=== PATIENT | female | born 1985 | race African-American/Black ===

== ENCOUNTER 2018-04-19 01:41 | Emergency (ER) | payer OTHER ==
--- NOTE | 2018-04-19 01:49 | PDOC ---
History of Present Illness - General Exam Limitations: No Limitations - History of Present Illness Initial Comments: 04/19/18 02:06 The patient is a 32 year old female with a significant PMH of diabetes who presents to the emergency department via EMS with abdominal pain for 2 days. The patient has been experiencing associated vomiting with her abdominal pain as per her significant other. She states that she is currently on her menstrual period. The patient denies any drug allergies. She denies any other symptoms at time of exam. She denies any fever, chills, nausea, diarrhea ,constipation, or urinary symptoms. The patient denies any chest pain, shortness of breath, headache and dizziness.The patient denies any other complaints at time of exam. <Boone Dc - Last Filed: 04/19/18 02:05> - General History Source: Significant Other <Fritz Maria - Last Filed: 04/20/18 19:51> - General Stated Complaint: VOMITING Time Seen by Provider: 04/19/18 01:47 Past History <Boone Dc - Last Filed: 04/19/18 02:05> <Fritz Maria - Last Filed: 04/20/18 19:51> - Past Medical History Allergies/Adverse Reactions: Allergies Allergy/AdvReac Type Severity Reaction Status Date / Time No Known Allergies Allergy Verified 04/19/18 01:57 Home Medications: Ambulatory Orders NK [No Known Home Medication] 04/19/18 Review of Systems - Review of Systems Able to Perform ROS?: Yes Comments:: 04/19/18 02:02 CONSTITUTIONAL: Absent: fever, chills, diaphoresis, generalized weakness, malaise, loss of appetite HEENT: Absent: rhinorrhea, nasal congestion, throat pain, throat swelling, difficulty swallowing, mouth swelling, ear pain, eye pain, visual Changes CARDIOVASCULAR: Absent: chest pain, syncope, palpitations, irregular heart rate, lightheadedness , peripheral edema RESPIRATORY: Absent: cough, shortness of breath, dyspnea with exertion, orthopnea, wheezing, stridor, hemoptysis GASTROINTESTINAL:(+)abdominal pain, vomiting Absent: abdominal distension, nausea, diarrhea, constipation, melena, hematochezia GENITOURINARY: Absent: dysuria, frequency, urgency, hesitancy, hematuria, flank pain, genital pain MUSCULOSKELETAL: Absent: myalgia, arthralgia, joint swelling SKIN: Absent: rash, itching, pallor HEMATOLOGIC/IMMUNOLOGIC: Absent: easy bleeding, easy bruising, lymphadenopathy, frequent infections ENDOCRINE: Absent: unexplained weight gain, unexplained weight loss, heat intolerance, cold intolerance NEUROLOGIC: Absent: headache, focal weakness or paresthesias, dizziness, unsteady gait, seizure, mental status changes, bladder or bowel incontinence PSYCHIATRIC: Absent: anxiety, depression, suicidal or homicidal ideation, hallucinations. <Boone Dc - Last Filed: 04/19/18 02:05> *Physical Exam - Vital Signs Last Vital Signs Temp Pulse Resp BP Pulse Ox 97.9 F 95 H 20 156/94 99 04/19/18 01:54 04/19/18 01:54 04/19/18 01:54 04/19/18 01:54 04/19/18 01:54 - Physical Exam Comments: 04/19/18 02:02 GENERAL:(+)mild distress Well developed, well nourished. Awake and alert. HEENT: Normocephalic, atraumatic. PERRLA, EOMI. No conjunctival pallor. Sclera are non- icteric. Moist mucous membranes. Oropharynx is clear. NECK: Supple. Full ROM. No JVD. Carotid pulses 2+ and symmetric, without bruits. No thyromegaly. No lymphadenopathy. CARDIOVASCULAR: Regular rate and rhythm. No murmurs, rubs, or gallops. Distal pulses are 2+ and symmetric. PULMONARY: No evidence of respiratory distress. Lungs clear to auscultation bilaterally. No wheezing, rales or rhonchi. ABDOMINAL: Soft. Non-tender. Non-distended. No rebound or guarding. No organomegaly. Normoactive bowel sounds. MUSCULOSKELETAL Normal range of motion at all joints. No bony deformities or tenderness. No CVA tenderness. EXTREMITIES: No cyanosis. No clubbing. No edema. No calf tenderness. SKIN: Warm and dry. Normal capillary refill. No rashes. No jaundice. NEUROLOGICAL: Alert, awake, appropriate. Cranial nerves 2-12 intact. No deficits to light touch and temperature in face, upper extremities and lower extremities. No motor deficits in the in face, upper extremities and lower extremities. Normoreflexic in the upper and lower extremities. Normal speech. Toes are down- going bilaterally. Gait is normal without ataxia. PSYCHIATRIC: Cooperative. Good eye contact. Appropriate mood and affect. <Boone Dc - Last Filed: 04/19/18 02:05> Heart Score/ECG Review - ECG Intrepretation Comment:: 04/19/18 02:06 Abnormal ECG Vent rate 87 bpm [place] interval 158 ms QRS [id number] ms QT/QTc 402/483 ms <Boone Dc - Last Filed: 04/19/18 02:05> ED Treatment Course - LABORATORY CBC & Chemistry Diagram: 04/19/18 06:29 04/19/18 06:29 <Fritz Maria - Last Filed: 04/20/18 19:51> Medical Decision Making - Medical Decision Making 04/20/18 19:51 Dr. Maria: The scribe's documentation has been prepared under my direction and personally reviewed by me in its entirery. I confirm that the note above accurately reflects all work, treatment, procedures, and medical decision making performed by me. <Fritz Marai - Last Filed: 04/20/18 19:51> *DC/Admit/Observation/Transfer <DaoKayainocencio - Last Filed: 04/19/18 02:05> - Discharge Dispostion Decision to Admit order: No <Fritz Maria - Last Filed: 04/20/18 19:51> Diagnosis at time of Disposition: Nausea and vomiting - Discharge Dispostion Disposition: HOME Condition at time of disposition: Improved - Referrals Referrals: Aneudy Hernandez MD [Primary Care Provider] - - Patient Instructions Printed Discharge Instructions: DI for Vomiting -- Adult Additional Instructions: Be sure to check your blood sugar regularly and use your diabetes medications as prescribed. Uncontrolled blood sugar can lead to severe illness, or even . If you experience persistent nausea or vomiting, abdominal pain, fevers, uncontrolled blood sugar, or any other concerning symptoms, return to the ER immediately. Otherwise, follow up with your primary doctor within 48 hours to have your sugar re-checked and your medications adjusted as needed.
[2018-04-19] MEDS ORDERED: PANTOPRAZOLE SODIUM 40 MG in SODIUM CHLORIDE 100 ML IVPB ONE (01:51)
[2018-04-19] MEDS ORDERED: SODIUM CHLORIDE 1,000 ML IV STA ×2 (01:51)
[2018-04-19] MEDS ORDERED: ONDANSETRON 4 MG/2 ML VIAL IVPUSH STA (01:51)
[2018-04-19 01:57] VITALS: BMI 51.2
[2018-04-19] MEDS ORDERED: LORazepam 2 MG/ML SDV VIAL ONE ×2 (02:16→03:22)
[2018-04-19] MEDS ORDERED: PANTOPRAZOLE SODIUM 40 MG/100 ML BAG IVPB ONE (02:16)
[2018-04-19 02:39] LABS: BASO % 0.5 % (0-2.0); EOS % 0.1 % (0-4.5); HEMATOCRIT 39.2 % (32.4-45.2); HEMOGLOBIN 12.8 GM/dL (10.7-15.3); LYMPH % 11.6 % (8-40); MCH 26.6 pg (25.7-33.7); MCHC 32.6 g/dl (32.0-36.0); MEAN CELL VOLUME 81.5 fl (80-96); MEAN PLT VOLUME 9.4 fl (7.5-11.1); MONO % 4.7 % (3.8-10.2); NEUT % 83.1 % (42.8-82.8); PLATELET COUNT 297 K/MM3 (134-434); RBC 4.82 M/mm3 (3.60-5.2); RDW 13.8 % (11.6-15.6); WHITE BLOOD COUNT 14.1 K/mm3 (4.0-10.0)
[2018-04-19 02:43] LABS: VENOUS PC02 31.1 mmHg (38-52); VENOUS PH 7.47 (7.32-7.42); VENOUS PO2 36.6 mmHg (28-48)
[2018-04-19 02:56] LABS: INR 1.18 (0.82-1.09); PROTHROMBIN TIME (PATIENT) 13.3 SEC (9.7-13.0)
[2018-04-19 03:02] LABS: ACETONE SERUM TRACE (NEGATIVE)
[2018-04-19] MEDS ORDERED: METOCLOPRAMIDE HCL INJECTION 10 MG/2 ML VIAL IVPUSH ONE (03:05)
[2018-04-19] MEDS ORDERED: METOCLOPRAMIDE HCL INJECTION 10 MG/2 ML VIAL ONE (03:22)
[2018-04-19 03:52] LABS: ALBUMIN 4.3 g/dl (3.4-5.0); ALK PHOS 94 U/L (45-117); ANION GAP 11 (8-16); BILIRUBIN,TOTAL 0.4 mg/dL (0.2-1.0); BLOOD UREA NITROGEN 8 mg/dL (7-18); CALCIUM 8.9 mg/dL (8.5-10.1); CHLORIDE 105 mmol/L (98-107); CO2 23 mmol/L (21-32); CREATININE 0.7 mg/dL (0.55-1.02); GLUCOSE,RANDOM 298 mg/dL (74-106); MAGNESIUM 1.9 mg/dL (1.8-2.4); POTASSIUM 3.4 mmol/L (3.5-5.1); SGOT/AST 7 U/L (15-37); SGPT/ALT 14 U/L (12-78); SODIUM 139 mmol/L (136-145); TOT PROT 8.2 g/dl (6.4-8.2)
[2018-04-19 05:30] LABS: URINE APPEARANCE CLEAR; URINE BILIRUBIN NEGATIVE (<2.0 mg/dL); URINE COLOR STRAW; URINE GLUCOSE (UA) 3+ (NEGATIVE); URINE KETONE 2+ (NEGATIVE); URINE LEUK ESTERASE NEGATIVE (NEGATIVE); URINE NITRITE NEGATIVE (NEGATIVE); URINE PROTEIN NEGATIVE (NEGATIVE); URINE UROBILINOGEN NEGATIVE mg/dL (0.2-1.0)
[2018-04-19 05:33] LABS: EPI CELLS RARE /HPF (FEW); URINE BACTERIA FEW /hpf (NONE SEEN); URINE MUCUS RARE
[2018-04-19 05:55] LABS: COCAINE, UR NEGATIVE ng/ml (CUTOFF=300); METHADONE, UR NEGATIVE ng/ml (CUTOFF=300); OPIATES, URI NEGATIVE ng/ml (CUTOFF=300); PHENCYCLIDINE,URINE NEGATIVE ng/ml (CUTOFF=25); URINE AMPHETAMINES NEGATIVE ng/ml (CUTOFF=500); URINE BARBITURATES NEGATIVE ng/ml (CUTOFF=200); URINE BENZODIAZEPINES NEGATIVE ng/ml (CUTOFF=200)
[2018-04-19] MEDS ORDERED: DEXTROSE 5%-LACTATED RINGERS 1,000 ML IV SCH (06:15)
[2018-04-19 06:48] LABS: BASO % 0.4 % (0-2.0); LYMPH % 5.5 % (8-40); MCH 26.6 pg (25.7-33.7); MCHC 32.5 g/dl (32.0-36.0); MEAN CELL VOLUME 81.8 fl (80-96); MEAN PLT VOLUME 9.3 fl (7.5-11.1); NEUT % 92.1 % (42.8-82.8); PLATELET COUNT 249 K/MM3 (134-434); RBC 4.52 M/mm3 (3.60-5.2); WHITE BLOOD COUNT 14.7 K/mm3 (4.0-10.0)
[2018-04-19 07:27] LABS: ALBUMIN 3.9 g/dl (3.4-5.0); ALK PHOS 86 U/L (45-117); ANION GAP 9 (8-16); BILIRUBIN,TOTAL 0.3 mg/dL (0.2-1.0); BLOOD UREA NITROGEN 6 mg/dL (7-18); CALCIUM 8.1 mg/dL (8.5-10.1); CHLORIDE 106 mmol/L (98-107); CO2 22 mmol/L (21-32); CREATININE 0.6 mg/dL (0.55-1.02); GLUCOSE,RANDOM 277 mg/dL (74-106); SGPT/ALT 16 U/L (12-78); SODIUM 137 mmol/L (136-145); TOT PROT 7.7 g/dl (6.4-8.2)
[2018-04-19 07:46] LABS: MAGNESIUM 1.9 mg/dL (1.8-2.4); POTASSIUM 4.4 mmol/L (3.5-5.1); SGOT/AST 16 U/L (15-37)
--- NOTE | 2018-04-19 08:07 | PDOC ---
*Physical Exam - Vital Signs Last Vital Signs Temp Pulse Resp BP Pulse Ox 98.0 F 80 18 140/85 97 04/19/18 05:30 04/19/18 05:30 04/19/18 05:30 04/19/18 05:30 04/19/18 05:30 - Physical Exam Comments: 04/19/18 08:01 "GENERAL: Awake, alert, and fully oriented, in no acute distress. HEAD: No signs of trauma EYES: PERRLA, EOMI, sclera anicteric, conjunctiva clear ENT: Auricles normal inspection, hearing grossly normal, nares patent, oropharynx clear without exudates. Moist mucosa NECK: Nontender, no stepoffs, Normal ROM, supple, no lymphadenopathy, JVD, or masses LUNGS: Breath sounds equal, clear to auscultation bilaterally. No wheezes, and no crackles HEART: Regular rate and rhythm, normal S1 and S2, no murmurs, rubs or gallops ABDOMEN: Soft, nontender, normoactive bowel sounds. No guarding, no rebound. No masses EXTREMITIES: Normal range of motion, no edema. No clubbing or cyanosis. No cords, erythema, or tenderness NEUROLOGICAL: Cranial nerves II through XII intact. 5/5 strength and sensation in all extremities, Normal speech, normal gait, normal cerebellar function SKIN: Warm, Dry, normal turgor, no rashes or lesions noted. " ED Treatment Course - LABORATORY CBC & Chemistry Diagram: 04/19/18 06:29 04/19/18 06:29 - ADDITIONAL ORDERS Additional order review: Laboratory Results 04/19/18 04/19/18 04/19/18 06:29 05:13 05:13 PT with INR INR VBG pH POC VBG pCO2 POC VBG pO2 Mixed VBG HCO3 Sodium 137 Potassium 4.4 Chloride 106 Carbon Dioxide 22 Anion Gap 9 BUN 6 L Creatinine 0.6 Creat Clearance w eGFR > 60 Random Glucose 277 H Calcium 8.1 L Magnesium 1.9 Total Bilirubin 0.3 AST 16 ALT 16 Alkaline Phosphatase 86 Total Protein 7.7 Albumin 3.9 Lipase Serum , Qual Urine Color Straw Urine Appearance Clear Urine pH 8.0 Ur Specific [place] 1.020 Urine Protein Negative Urine Glucose (UA) 3+ H Urine Ketones 2+ H Urine Blood 1+ H Urine Nitrite Negative Urine Bilirubin Negative Urine Urobilinogen Negative Ur Leukocyte Esterase Negative Urine WBC (Auto) 3 Urine RBC (Auto) 5 Ur Epithelial Cells Rare Urine Bacteria Few Urine Mucus Rare Opiates Screen Negative Methadone Screen Negative Barbiturate Screen Negative Phencyclidine Screen Negative Ur Amphetamines Screen Negative MDMA (Ecstasy) Screen Negative Benzodiazepines Screen Negative Cocaine Screen Negative U Marijuana (THC) Screen Positive Alcohol, Quantitative Acetone, Qual 04/19/18 04/19/18 04/19/18 02:00 02:00 02:00 PT with INR INR VBG pH 7.47 H POC VBG pCO2 31.1 L POC VBG pO2 36.6 Mixed VBG HCO3 22.5 Sodium Potassium Chloride Carbon Dioxide Anion Gap BUN Creatinine Creat Clearance w eGFR Random Glucose Calcium Magnesium Total Bilirubin AST ALT Alkaline Phosphatase Total Protein Albumin Lipase 122 Serum , Qual Urine Color Urine Appearance Urine pH Ur Specific [place] Urine Protein Urine Glucose (UA) Urine Ketones Urine Blood Urine Nitrite Urine Bilirubin Urine Urobilinogen Ur Leukocyte Esterase Urine WBC (Auto) Urine RBC (Auto) Ur Epithelial Cells Urine Bacteria Urine Mucus Opiates Screen Methadone Screen Barbiturate Screen Phencyclidine Screen Ur Amphetamines Screen MDMA (Ecstasy) Screen Benzodiazepines Screen Cocaine Screen U Marijuana (THC) Screen Alcohol, Quantitative < 5.0 Acetone, Qual Trace H 04/19/18 04/19/18 04/19/18 02:00 02:00 02:00 PT with INR 13.30 H INR 1.18 H VBG pH POC VBG pCO2 POC VBG pO2 Mixed VBG HCO3 Sodium 139 Potassium 3.4 L Chloride 105 Carbon Dioxide 23 Anion Gap 11 BUN 8 Creatinine 0.7 Creat Clearance w eGFR > 60 Random Glucose 298 H Calcium 8.9 Magnesium 1.9 Total Bilirubin 0.4 AST 7 L ALT 14 Alkaline Phosphatase 94 Total Protein 8.2 Albumin 4.3 Lipase Serum , Qual Negative Urine Color Urine Appearance Urine pH Ur Specific [place] Urine Protein Urine Glucose (UA) Urine Ketones Urine Blood Urine Nitrite Urine Bilirubin Urine Urobilinogen Ur Leukocyte Esterase Urine WBC (Auto) Urine RBC (Auto) Ur Epithelial Cells Urine Bacteria Urine Mucus Opiates Screen Methadone Screen Barbiturate Screen Phencyclidine Screen Ur Amphetamines Screen MDMA (Ecstasy) Screen Benzodiazepines Screen Cocaine Screen U Marijuana (THC) Screen Alcohol, Quantitative Acetone, Qual 04/19/18 04/19/18 06:29 02:00 RBC 4.52 4.82 MCV 81.8 81.5 MCHC 32.5 32.6 RDW 14.0 13.8 MPV 9.3 9.4 Neutrophils % 92.1 H 83.1 H Lymphocytes % 5.5 L D 11.6 Monocytes % 2.0 L 4.7 Eosinophils % 0.0 D 0.1 Basophils % 0.4 0.5 - Medications Given in the ED: ED Medications Discontinued Medications Generic Name Dose Route Start Last Admin Trade Name Freq PRN Reason Stop Dose Admin Sodium Chloride 1,000 mls @ 1,000 mls/hr 04/19/18 01:51 04/19/18 02:29 Normal Saline - IV 04/19/18 02:50 1,000 mls/hr ASDIR STA Administration Sodium Chloride 1,000 mls @ 1,000 mls/hr 04/19/18 01:51 04/19/18 02:29 Normal Saline - IV 04/19/18 02:50 1,000 mls/hr ASDIR STA Administration Pantoprazole Sodium 40 mg/ 100 mls @ 200 mls/hr 04/19/18 01:51 04/19/18 02:29 Sodium Chloride IVPB 04/19/18 02:20 200 mls/hr ONCE ONE Administration Dextrose/Lactated Ringer's 1,000 mls @ 100 mls/hr 04/19/18 06:15 04/19/18 06: 31 D5-Lr - IV 100 mls/hr ASDIR ANA Administration Lorazepam 1 mg 04/19/18 02:15 04/19/18 02:30 Ativan Injection - IVPUSH 04/19/18 02:16 1 mg ONCE ONE Administration Lorazepam 1 mg 04/19/18 03:08 04/19/18 03:53 Ativan Injection - IVPUSH 04/19/18 03:09 1 mg ONCE ONE Administration Metoclopramide HCl 10 mg 04/19/18 03:05 04/19/18 03:53 Reglan Injection - IVPUSH 04/19/18 03:06 10 mg ONCE ONE Administration Ondansetron HCl 4 mg 04/19/18 01:51 04/19/18 02:29 Zofran Injection IVPUSH 04/19/18 01:52 4 mg ONCE STA Administration Medical Decision Making - Medical Decision Making 04/19/18 08:03 32 F with DM presenting with N+V. Pt initially with glucose in 200s and trace ketones in blood. However, AG was only 11 with no acidosis. Unlikely DKA. Pt reassessed - now tolerating PO with no nausea. Pt is well appearing, with normal vitals. Clinically stable for DC at this time. I discussed the physical exam findings, ancillary test results and final diagnoses with the patient. I answered all of the patient's questions. The patient was satisfied with the care received and felt comfortable with the discharge plan and treatment plan. The patient agrees to follow up with the primary care physician within 24-72 hours. *DC/Admit/Observation/Transfer Diagnosis at time of Disposition: Nausea and vomiting - Discharge Dispostion Disposition: HOME Condition at time of disposition: Fair - Referrals Referrals: Aneudy Hernandez MD [Primary Care Provider] - - Patient Instructions Printed Discharge Instructions: DI for Vomiting -- Adult Additional Instructions: Be sure to check your blood sugar regularly and use your diabetes medications as prescribed. Uncontrolled blood sugar can lead to severe illness, or even . If you experience persistent nausea or vomiting, abdominal pain, fevers, uncontrolled blood sugar, or any other concerning symptoms, return to the ER immediately. Otherwise, follow up with your primary doctor within 48 hours to have your sugar re-checked and your medications adjusted as needed. - Post Discharge Activity - Attestations Physician Attestion: 04/19/18 08:09 I, Dr. Bran Levine MD, attest that this document has been prepared under my direction and personally reviewed by me in its entirety. I further attest, that it accurately reflects all work, treatment, procedures and medical decision -making performed by me.
[2018-04-19 08:43] VITALS: BP 158/92; PULSE 92; TEMP 98.8
[2018-04-19 09:55] LABS: ACETONE SERUM NEGATIVE (NEGATIVE)
[2018-04-19 11:58] LABS: ANISOCYTOSIS 1+; MACROCYTOSIS 0; PLATELET ESTIMATE NORMAL
--- NOTE | 2018-04-19 12:59 | EKG ---
Test Reason : Blood Pressure : / mmHG Vent. Rate : 087 BPM Atrial Rate : 087 BPM P-R Int : 158 ms QRS Dur : 086 ms QT Int : 402 ms P-R-T Axes : 046 064 042 degrees QTc Int : 483 ms NORMAL SINUS RHYTHM PROLONGED QT ABNORMAL ECG NO PREVIOUS ECGS AVAILABLE Confirmed by WILD JAMISON, TRENTON ([id number]) on 04/19/2018 12:59:03 PM Referred By: Confirmed By:TRENTON ROME MD
== END 2018-04-19 08:43 | disposition home or self-care (01) ==
LOC: JER 01:41
PROC: 3E033GC Introduction of Other Therapeutic Substance into Peripheral Vein, Percutaneous Approach (ICD-10-PCS; principal; 2018-04-19)
PROC: 3E033GC Introduction of Other Therapeutic Substance into Peripheral Vein, Percutaneous Approach (ICD-10-PCS; 2018-04-19)
PROC: 3E0337Z Introduction of Electrolytic and Water Balance Substance into Peripheral Vein, Percutaneous Approach (ICD-10-PCS; 2018-04-19)
PROC: 3E033GC Introduction of Other Therapeutic Substance into Peripheral Vein, Percutaneous Approach (ICD-10-PCS; 2018-04-19)
PROC: 3E033GC Introduction of Other Therapeutic Substance into Peripheral Vein, Percutaneous Approach (ICD-10-PCS; 2018-04-19)
PROC: 3E033NZ Introduction of Analgesics, Hypnotics, Sedatives into Peripheral Vein, Percutaneous Approach (ICD-10-PCS; 2018-04-19)
PROC: 3E033NZ Introduction of Analgesics, Hypnotics, Sedatives into Peripheral Vein, Percutaneous Approach (ICD-10-PCS; 2018-04-19)
DX: R11.2 Nausea with vomiting, unspecified (principal); E11.9 Type 2 diabetes mellitus without complications
CPT/HCPCS: 36415; 80053; 80307; 81003; 81015; 82009; 82803; 83690; 83735; 84703; 85025; 85610; 93005; 93010; 96361; 96365; 96367; 96375; 96376; 99283-25; J7030

== ENCOUNTER 2020-06-08 08:21 | Inpatient (IN) | payer OTHER ==
--- NOTE | 2020-06-08 08:32 | PDOC ---
History of Present Illness - General Chief Complaint: Pain Stated Complaint: ABDOMINAL PAIN Time Seen by Provider: 06/08/20 08:32 History Source: Patient, Parent(s) - History of Present Illness Initial Comments: 06/08/20 09:08 Ms. Orozco is a 34 y/o woman w/hx IDDM p/w acute onset abdominal pain, nausea, vomiting. She reports that the pain started today, and has been occurring monthly for the past several months. She reports multiple episodes of nbnb vomiting and has been unable to tolerate po. She reports 10/10 epigastric pain radiating to her back, similar in caliber to prior episodes of abdominal pain. History limited by pain. She denies fevers, chills, chest pain, or sob. Social Hx: daily cigarettes, denies etoh or drug use Past History - Medical History Allergies/Adverse Reactions: Allergies Allergy/AdvReac Type Severity Reaction Status Date / Time No Known Allergies Allergy Verified 06/08/20 08:41 Home Medications: Ambulatory Orders Insulin (LOG) Aspart [NovoLOG -] 4 units SQ TID 06/08/20 Insulin (Levemir) [Levemir Vial] 16 unit SQ HS 06/08/20 COPD: No - Immunization History Immunization Up to Date: Yes - Psycho-Social/Smoking History Smoking History: Never smoked Have you smoked in the past 12 months: No Review of Systems - Review of Systems Able to Perform ROS?: Yes Comments:: 06/08/20 09:19 GENERAL/CONSTITUTIONAL: No fever or chills. No weakness. HEAD, EYES, EARS, NOSE AND THROAT: No change in vision. No ear pain or discharge. No sore throat. CARDIOVASCULAR: No chest pain or shortness of breath RESPIRATORY: No cough, wheezing, or hemoptysis. GASTROINTESTINAL: Nausea, vomiting, abdominal pain. No diarrhea or constipation. GENITOURINARY: No dysuria, frequency, or change in urination. MUSCULOSKELETAL: No joint or muscle swelling or pain. No neck or back pain. SKIN: No rash NEUROLOGIC: No headache, vertigo, loss of consciousness, or change in strength/sensation. ENDOCRINE: No increased thirst. No abnormal weight change HEMATOLOGIC/LYMPHATIC: No anemia, easy bleeding, or history of blood clots. ALLERGIC/IMMUNOLOGIC: No hives or skin allergy. *Physical Exam - Physical Exam 06/08/20 09:20 GENERAL: Awake, alert, and fully oriented, groaning clutching abdomen. HEAD: No signs of trauma, normocephalic, atraumatic EYES: PERRLA, EOMI, sclera anicteric, conjunctiva clear ENT: Auricles normal inspection, hearing grossly normal, nares patent, oropharynx clear without exudates. Moist mucosa NECK: Normal ROM, supple, no lymphadenopathy, JVD, or masses LUNGS: No distress, speaks full sentences, clear to auscultation bilaterally HEART: Regular rate and rhythm, normal S1 and S2, no murmurs, rubs or gallops, peripheral pulses normal and equal bilaterally. ABDOMEN: Epigastric, LUQ tenderness. Soft, normoactive bowel sounds. No guarding, no rebound. No masses EXTREMITIES : Normal inspection, Normal range of motion, no edema. No clubbing or cyanosis NEUROLOGICAL: Cranial nerves II through XII grossly intact. Normal speech, normal gait, no focal sensorimotor deficits SKIN: Warm, Dry, normal turgor, no rashes or lesions noted ED Treatment Course - LABORATORY CBC & Chemistry Diagram: 06/08/20 08:35 06/08/20 08:35 Medical Decision Making - Medical Decision Making 06/08/20 09:21 34F w/hx IDDM p/w acute onset episode of recurring monthly abdominal pain. Ddx acute pancreatitis, diabetic gastroparesis, DKA, acute on chronic pancreatitis. Plan: CBC CMP Lipase Beta hydroxybutyrate UA Urine hcg Zofran [facility] Dispo: Pending labs, reassessment s/p medications 06/08/20 09:37 CMP - no anion gap Lipase - wnl On reassessment, patient reports some improvement of pain with medications, fluids. 06/08/20 14:23 Patient reports worsening of symptoms, described as spasm in her back alongside worsening nausea, vomiting. 06/08/20 16:45 Patient symptoms unable to be controlled, plan for admission for intractable vomiting/abdominal pain. Discharge - Discharge Information Problems reviewed: Yes Clinical Impression/Diagnosis: Nausea and vomiting Qualifiers: Vomiting type: unspecified Vomiting Intractability: non-intractable Qualified Code(s): R11.2 - Nausea with vomiting, unspecified Condition: Stable Disposition: HOME - Admission No - Follow up/Referral - Patient Discharge Instructions - Post Discharge Activity
[2020-06-08] MEDS ORDERED: LACTATED RINGERS SOLUTION 1000 ML INFUS.BAG IV ONE (08:42)
[2020-06-08] MEDS ORDERED: ONDANSETRON 4 MG/2 ML VIAL IVPUSH ONE (08:43)
[2020-06-08] MEDS ORDERED: FAMOTIDINE 20 MG/50 ML IVPB 20 MG/50 ML MG IVPB ONE ×3 (08:43→21:30)
[2020-06-08] MEDS ORDERED: ACETAMINOPHEN 1000 MG/100 ML VIAL (NON FORMULARY) IVPB ONE (08:43)
[2020-06-08] MEDS ORDERED: ACETAMINOPHEN INJECTION 100 ML IVPB ONE ×2 (08:45→20:33)
[2020-06-08 09:00] LABS: BASO % 0.4 % (0-2.0); HEMATOCRIT 39.4 % (32.4-45.2); HEMOGLOBIN 13.2 GM/dL (10.7-15.3); LYMPH % 9.4 % (8-40); MCHC 33.4 g/dl (32.0-36.0); MEAN CELL VOLUME 83.8 fl (80-96); MEAN PLT VOLUME 9.3 fl (7.5-11.1); MONO % 5.3 % (3.8-10.2); NEUT % 84.9 % (42.8-82.8); PLATELET COUNT 244 K/MM3 (134-434); WHITE BLOOD COUNT 12.4 K/mm3 (4.0-10.0)
[2020-06-08 09:32] LABS: ALBUMIN 4.5 g/dl (3.4-5.0); BLOOD UREA NITROGEN 8.5 mg/dL (7-18); CALCIUM 9.3 mg/dL (8.5-10.1); CREATININE 0.6 mg/dL (0.55-1.3); POTASSIUM 3.8 mmol/L (3.5-5.1); TOT PROT 7.9 g/dl (6.4-8.2)
[2020-06-08 09:50] LABS: BILIRUBIN,TOTAL 1.1 mg/dL (0.2-1)
[2020-06-08] MEDS ORDERED: morphine CARPU-JECT 4 MG/1 ML DISP.SYRIN IVPUSH ONE (10:21)
[2020-06-08] MEDS ORDERED: morphine SULFATE 4 MG/ML VIAL ONE (10:22)
[2020-06-08 11:07] LABS: URINE APPEARANCE CLEAR; URINE BILIRUBIN NEGATIVE (NEGATIVE); URINE COLOR YELLOW; URINE GLUCOSE (UA) 3+ (NEGATIVE); URINE KETONE 2+ (NEGATIVE); URINE LEUK ESTERASE NEGATIVE (NEGATIVE); URINE NITRITE NEGATIVE (NEGATIVE); URINE PROTEIN NEGATIVE (NEGATIVE); URINE UROBILINOGEN 0.2 mg/dL (0.2-1.0)
[2020-06-08 11:21] LABS: VENOUS BASE EXCESS -4.6 mmol/L (-2-2); VENOUS O2 SATURATION 83.9 % (70-80); VENOUS PCO2 34.7 mmHg (38-52); VENOUS PH 7.375 (7.310-7.410)
[2020-06-08] MEDS ORDERED: METOCLOPRAMIDE HCL INJECTION 10 MG/2 ML VIAL IVPUSH ONE (13:27)
[2020-06-08] MEDS ORDERED: METOCLOPRAMIDE HCL INJECTION 10 MG/2 ML VIAL ONE (13:48)
--- NOTE | 2020-06-08 14:43 | PDOC ---
Documentation entered by Lea Greenberg SCRIBE, acting as scribe for Stacy Ureña MD. Stacy Ureña MD: This documentation has been prepared by the gageibeDionicio Ana, SCRIBE, under my direction and personally reviewed by me in its entirety. I confirm that the documentation accurately reflects all work, treatment, procedures, and medical decision making performed by me. Attending Attestation - Resident Resident Name: Keaton Deutsch - ED Attending Attestation I have performed the following: I have examined & evaluated the patient, The case was reviewed & discussed with the resident, I agree w/resident's findings & plan, Exceptions are as noted - HPI HPI: 06/08/20 09:33 Patient is a 34 year old female with a significant past medical history of smoking (daily cigarettes) and diabetes, who presents to the ED with nausea, vomiting, and abdominal pain since earlier today. Patient stated her pain level is a 10/10 and that the pain radiates to her back. Patient said she has had multiple episodes of NBNB vomiting along with not being able to tolerate PO. Patient reports that she has had similar symptoms in the past over the last few months. She denies any drug use. Patient denies: fever, chills, SOB, chest pain, alcohol intake, recreational drug use, or any other related symptoms. Allergies: NKDA - Physicial Exam PE: 06/08/20 14:01 GENERAL: Awake, alert, and fully oriented, in no acute distress but appears uncomfortable EYES: PERRLA, EOMI, sclera anicteric, conjunctiva clear ENT: Auricles normal inspection, hearing grossly normal, nares patent, orophar ynx clear without exudates. Moist mucosa NECK: Normal ROM, supple, no lymphadenopathy, JVD, or masses LUNGS: Breath sounds equal, clear to auscultation bilaterally. No wheezes, and no crackles HEART: Regular rate and rhythm, normal S1 and S2, no murmurs, rubs or gallops ABDOMEN: Soft, diffuse mild ttp, normoactive bowel sounds. No guarding, no rebound. No masses. No distention. EXTREMITIES: Normal range of motion, no edema. No clubbing or cyanosis. No cords, erythema, or tenderness NEUROLOGICAL: Normal speech, cranial nerves intact, equal strength and sensation b/l SKIN: Warm, Dry, normal turgor, no rashes or lesions noted. - Medical Decision Making 06/08/20 14:02 34yo F hx DM presents to the ED with N/V/D, diffuse abd pain Vitals unremarkable DDx includes gastropareisis vs pancreatitis vs gastritis vs gastroenteritis Will attempt pain control, antiemetics Labs unremarkable including lipase CTAP and RUQ with no acute pathology Likely gastropareisis Will trial reglan at this stage, if no improvement, likely admit for intractable abd pain and PO intolerance 06/08/20 15:14 Pt has thrown up juice At this point, will dose ativan for nausea ADmit for PO intol and intractable abd pain Discharge - Discharge Information Problems reviewed: Yes Clinical Impression/Diagnosis: Nausea and vomiting Qualifiers: Vomiting type: unspecified Vomiting Intractability: non-intractable Qualified Code(s): R11.2 - Nausea with vomiting, unspecified Condition: Stable Disposition: HOME - Follow up/Referral - Patient Discharge Instructions - Post Discharge Activity
[2020-06-08] MEDS ORDERED: SODIUM CHLORIDE 1,000 ML IV STA (15:33)
[2020-06-08] MEDS ORDERED: ONDANSETRON 4 MG/2 ML VIAL IVPUSH PRN (16:27)
[2020-06-08] MEDS ORDERED: ACETAMINOPHEN 1000 MG/100 ML VIAL (NON FORMULARY) IVPB PRN (16:29)
[2020-06-08] MEDS ORDERED: SODIUM CHLORIDE 1,000 ML IV SCH (16:30)
[2020-06-08] MEDS ORDERED: LORazepam 2 MG/ML SDV VIAL ONE (16:34)
--- NOTE | 2020-06-08 16:35 | HP ---
Admitting History and Physical - Primary Care Physician PCP: Jolene tox positive for - Admission Chief Complaint: Epigastric pain with nausea vomiting History of Present Illness: 34-year-old female history of diabetes mellitus for past 10 years, patient lives in [place] follow[place]up in [place], also history of marijuana abuse and active smoker, today presented to ED with complaint of severe epigastric pain 10 out of 10 he started last night, with nausea and nonbloody nonbilious vomiting 6-8 times, chest pain with radiation to the back, denies any fever, chills, right upper quadrant pain, dysuria or CVA pain or tenderness, on arrival to ED patient has elevated random blood glucose with low serum bicarb and elevated beta hydroxybutyrate, received IV hydration, Zofran and famotidine pain responded to IV Tylenol, at the time of examination complaint of muscle cramps nausea vomiting improved says epigastric pain has resolved. History Source: Patient - Past Medical History ...LMP: 06/08/20 ...: No Endocrine: Yes: Diabetes Mellitus - Smoking History Smoking history: Current every day smoker Have you smoked in the past 12 months: No - Alcohol/Substance Use Hx Alcohol Use: No - Social History Usual Living Arrangement: Yes: With Spouse History of Recent Travel: No Home Medications - Allergies Allergies/Adverse Reactions: Allergies Allergy/AdvReac Type Severity Reaction Status Date / Time No Known Allergies Allergy Verified 06/08/20 08:41 - Home Medications Home Medications: Ambulatory Orders Insulin (LOG) Aspart [NovoLOG -] 4 units SQ TID 06/08/20 Insulin (Levemir) [Levemir Vial] 16 unit SQ HS 06/08/20 Family Medical History Family Hx Cardiac Disorders: Mother (Hyper), Father (Hypertension) Family Hx Diabetes: Mother Review of Systems - Review of Systems Constitutional: denies: Chills, Diaphoresis, Fever Eyes: denies: Blind Spots, Blurred Vision, Double Vision HENT: denies: Difficult Swallowing, Ear Discharge Neck: denies: Decreased ROM, Lumps, Pain on Movement Cardiovascular: denies: Chest Pain, Edema, Palpitations, Shortness of Breath Respiratory: denies: Cough, Exercise Intolerance, Hemoptysis Gastrointestinal: reports: Abdominal Pain, Nausea, Vomiting. denies: Diarrhea Genitourinary: denies: Discharge, Dysuria, Flank Pain Breasts: reports: Breast Implants Musculoskeletal: reports: Muscle Pain, Muscle Cramps Neurological: denies: Change in Speech, Confusion Endocrine: denies: Excessive Sweating, Flushing, Increased Hunger Psychiatric: denies: Altered Sleep Pattern, Anxiety, Depression Physical Examination Vital Signs: Vital Signs Temperature 97.8 F 06/08/20 08:26 Pulse Rate 90 06/08/20 13:46 Respiratory Rate 20 06/08/20 16:09 Blood Pressure 140/79 06/08/20 13:46 O2 Sat by Pulse Oximetry (%) 100 06/08/20 16:09 General: Young female woman, mild abdominal discomfort, not in distress HEENT mucous membranes , no anemia, no jaundice, PERRLA, no nystagmus Neck: No JVD, supple, no bruit, thyroid palpably normal, normal carotid pulsations. Chest: Nontender, clear to auscultation bilaterally CVS: S1-S2 regular no murmur/gallop/rub Abdomen: Gastric tenderness nondistended, soft, bowel sounds present. Extremities: No edema., No Calf tenderness, pulses present DOCK CLERK: AO X3 , no gross motor sensory deficit Labs: CBC,CMP WBC 12.4 K/mm3 (4.0-10.0) H 06/08/20 08:35 RBC 4.70 M/mm3 (3.60-5.2) 06/08/20 08:35 Hgb 13.2 GM/dL (10.7-15.3) 06/08/20 08:35 Hct 39.4 % (32.4-45.2) 06/08/20 08:35 MCV 83.8 fl (80-96) 06/08/20 08:35 MCH 28.0 pg (25.7-33.7) 06/08/20 08:35 MCHC 33.4 g/dl (32.0-36.0) 06/08/20 08:35 RDW 14.0 % (11.6-15.6) 06/08/20 08:35 Plt Count 244 K/MM3 (134-434) 06/08/20 08:35 MPV 9.3 fl (7.5-11.1) 06/08/20 08:35 Absolute Neuts (auto) 10.6 K/mm3 (1.5-8.0) H 06/08/20 08:35 Neutrophils % 84.9 % (42.8-82.8) H 06/08/20 08:35 Lymphocytes % 9.4 % (8-40) D 06/08/20 08:35 Monocytes % 5.3 % (3.8-10.2) D 06/08/20 08:35 Eosinophils % 0.0 % (0-4.5) 06/08/20 08:35 Basophils % 0.4 % (0-2.0) 06/08/20 08:35 Nucleated RBC % 0 % (0-0) 06/08/20 08:35 Sodium 137 mmol/L (136-145) 06/08/20 08:35 Potassium 3.8 mmol/L (3.5-5.1) 06/08/20 08:35 Chloride 105 mmol/L (98-107) 06/08/20 08:35 Carbon Dioxide 20 mmol/L (21-32) L 06/08/20 08:35 Anion Gap 12 MMOL/L (8-16) 06/08/20 08:35 BUN 8.5 mg/dL (7-18) 06/08/20 08:35 Creatinine 0.6 mg/dL (0.55-1.3) 06/08/20 08:35 Est GFR (CKD-EPI)AfAm 135.91 06/08/20 08:35 Est GFR (CKD-EPI)NonAf 117.26 06/08/20 08:35 POC Glucometer 305 UNITS (80-120) 06/08/20 08:59 Random Glucose 236 mg/dL (74-106) H 06/08/20 08:35 Calcium 9.3 mg/dL (8.5-10.1) 06/08/20 08:35 Total Bilirubin 1.1 mg/dL (0.2-1) H 06/08/20 08:35 AST 12 U/L (15-37) L 06/08/20 08:35 ALT 20 U/L (13-61) 06/08/20 08:35 Alkaline Phosphatase 81 U/L (45-117) 06/08/20 08:35 Total Protein 7.9 g/dl (6.4-8.2) 06/08/20 08:35 Albumin 4.5 g/dl (3.4-5.0) 06/08/20 08:35 Lipase 95 U/L (73-393) 06/08/20 08:35 Beta-Hydroxybutyrate 10.0 mg/dL (0.2-2.8) H 06/08/20 08:35 Beta HCG, Quant < 1.0 mIU/ml 06/08/20 10:10 Anion Gap Anion Gap 12 MMOL/L (8-16) 06/08/20 08:35 Urine Test Results Urine Color Yellow 06/08/20 10:48 Urine Appearance Clear 06/08/20 10:48 Urine pH 7.0 (5.0-8.0) 06/08/20 10:48 Ur Specific [place] 1.026 (1.010-1.035) 06/08/20 10:48 Urine Protein Negative (NEGATIVE) 06/08/20 10:48 Urine Glucose (UA) 3+ (NEGATIVE) H 06/08/20 10:48 Urine Ketones 2+ (NEGATIVE) H 06/08/20 10:48 Urine Blood Negative (NEGATIVE) 06/08/20 10:48 Urine Nitrite Negative (NEGATIVE) 06/08/20 10:48 Urine Bilirubin Negative (NEGATIVE) 06/08/20 10:48 Ur Leukocyte Esterase Negative (NEGATIVE) 06/08/20 10:48 Imaging - Results Cat Scan: Report Reviewed (Abdomen: Small amount free pelvic fluid, 3.3 cm left adnexal cyst, 2.3 cm right renal cyst) EKG: Report Reviewed (Pending) Problem List - Problems (1) Nausea and vomiting Assessment/Plan: Patient presents with epigastric pain nausea vomiting acute onset after eating outside unlikely gastroparesis, patient pains improved, now on field, lipase level is normal, CT abdomen is unremarkable, right upper quadrant ultrasound is unremarkable, will start clear liquid advance as tolerates, diabetes diet, Zofran 4 mg every 6 hourly as needed, famotidine, Tylenol 1 g IV every 6 hourly as needed FU current abdominal examination. Normal saline 100 cc every 6 hourly, Problems reviewed: Yes Code(s): R11.2 - NAUSEA WITH VOMITING, UNSPECIFIED Qualifiers: Vomiting type: unspecified Vomiting Intractability: non-intractable Qualified Code(s): R11.2 - Nausea with vomiting, unspecified (2) Type 2 diabetes mellitus Assessment/Plan: Patient has history of type 2 diabetes mellitus on insulin, Levemir 16 units at bedtime will continue home dose of insulin with correction dose lispro, diabetes diet, follow-up hemoglobin A1c, follow-up magnesium and phosphate level. Problems reviewed: Yes Code(s): E11.9 - TYPE 2 DIABETES MELLITUS WITHOUT COMPLICATIONS (3) Marijuana abuse Assessment/Plan: History of marijuana abuse will continue Zofran, famotidine follow-up EKG to monitor QTC, follow-up U tox positive for marijuana Problems reviewed: Yes Code(s): F12.10 - CANNABIS ABUSE, UNCOMPLICATED (4) Uncontrolled diabetes mellitus Assessment/Plan: Patient has uncontrolled diabetes mellitus with elevated beta hydroxybutyrate we will follow-up BMP after IV hydration. Problems reviewed: Yes Code(s): E11.65 - TYPE 2 DIABETES MELLITUS WITH HYPERGLYCEMIA Assessment/Plan Active Medications Acetaminophen (Ofirmev Injection -) 1,000 mg IVPB Q6H PRN PRN Reason: PAIN LEVEL 4 - 6 Stop: 06/09/20 16:29 Famotidine/Sodium Chloride (Pepcid 20 Mg Premixed Ivpb -) 20 mg in 50 mls @ 100 mls/hr IVPB BID ANA Sodium Chloride (Normal Saline -) 1,000 mls @ 100 mls/hr IV ASDIR ANA Insulin Aspart (Novolog Vial Sliding Scale -) 1 vial SQ TIDAC ANA; Protocol Insulin Detemir (Levemir Vial) 16 units SQ HS ANA Ondansetron HCl (Zofran Injection) 4 mg IVPUSH Q6H PRN PRN Reason: NAUSEA
[2020-06-08] MEDS: INSULIN SLIDING SCALE (NOVOLOG) 1 VIAL SQ SCH (16:44)
[2020-06-08 17:10] LABS: COCAINE, UR NEGATIVE ng/ml (CUTOFF=300); OPIATES, URI NEGATIVE ng/ml (CUTOFF=300); PHENCYCLIDINE,URINE NEGATIVE ng/ml (CUTOFF=25); URINE BARBITURATES NEGATIVE ng/ml (CUTOFF=200)
[2020-06-08 17:11] LABS: METHADONE, UR NEGATIVE ng/ml (CUTOFF=300); URINE AMPHETAMINES NEGATIVE ng/ml (CUTOFF=500); URINE BENZODIAZEPINES NEGATIVE ng/ml (CUTOFF=200)
[2020-06-08] MEDS: NICOTINE 14 MG/24 HOURS TOPICAL PATCH TD SCH (18:44)
[2020-06-08] MEDS ORDERED: INSULIN (LEVEMIR) 100 UNITS/ML UNITS SQ ONE (21:31)
[2020-06-08] MEDS: FAMOTIDINE 20 MG/50 ML IVPB 20 MG/50 ML MG IVPB SCH (21:38)
[2020-06-08] MEDS ORDERED: INSULIN (LEVEMIR) 100 UNITS/ML UNITS SQ SCH ×2 (22:00)
[2020-06-09 06:45] VITALS: PULSE 94
[2020-06-09 08:28] LABS: BASO % 0.7 % (0-2.0); EOS % 0.1 % (0-4.5); HEMATOCRIT 39.6 % (32.4-45.2); LYMPH % 15.3 % (8-40); MCH 27.4 pg (25.7-33.7); MCHC 32.7 g/dl (32.0-36.0); MEAN CELL VOLUME 83.6 fl (80-96); MEAN PLT VOLUME 9.1 fl (7.5-11.1); MONO % 8.1 % (3.8-10.2); NEUT % 75.8 % (42.8-82.8); PLATELET COUNT 225 K/MM3 (134-434); RBC 4.74 M/mm3 (3.60-5.2); WHITE BLOOD COUNT 12.5 K/mm3 (4.0-10.0)
[2020-06-09 08:45] LABS: BLOOD UREA NITROGEN 5.4 mg/dL (7-18); CALCIUM 8.9 mg/dL (8.5-10.1); CREATININE 0.5 mg/dL (0.55-1.3); MAGNESIUM 2.2 mg/dL (1.8-2.4); POTASSIUM 3.5 mmol/L (3.5-5.1)
[2020-06-09] MEDS: INSULIN SLIDING SCALE (NOVOLOG) 1 VIAL SQ SCH ×2 (09:01→11:27)
--- NOTE | 2020-06-09 09:17 | EKG ---
Test Reason : Blood Pressure : / mmHG Vent. Rate : 105 BPM Atrial Rate : 105 BPM P-R Int : 142 ms QRS Dur : 074 ms QT Int : 364 ms P-R-T Axes : 086 073 059 degrees QTc Int : 481 ms SINUS TACHYCARDIA BIATRIAL ENLARGEMENT POSSIBLE ANTEROLATERAL INFARCT , AGE UNDETERMINED ABNORMAL ECG WHEN COMPARED WITH ECG OF 19-APR-2018 02:01, T WAVE VARIATION Confirmed by TIANA DOW MD ([id number]) on 06/09/2020 9:16:49 AM Referred By: Confirmed By:TIANA DOW MD
[2020-06-09] MEDS ORDERED: FAMOTIDINE 20 MG/50 ML IVPB 20 MG/50 ML MG IVPB ONE (09:40)
[2020-06-09] MEDS: NICOTINE 14 MG/24 HOURS TOPICAL PATCH TD SCH (09:41)
[2020-06-09] MEDS: FAMOTIDINE 20 MG/50 ML IVPB 20 MG/50 ML MG IVPB SCH (09:41)
[2020-06-09 10:54] VITALS: BP 113/74; TEMP 98.4
[2020-06-09 11:22] LABS: PHOSPHOROUS 2.8 mg/dL (2.5-4.9)
--- NOTE | 2020-06-09 13:08 | PN ---
Teaching Attending Note Name of Resident: Lambert Castillo ATTENDING PHYSICIAN STATEMENT I saw and evaluated the patient. I reviewed the resident's note and discussed the case with the resident. I agree with the resident's findings and plan as documented. SUBJECTIVE: Feeling much better - no further abdominal pain/nausea/vomiting. No fever/chills. OBJECTIVE: Afebrile, Hemodynamically stable. Last Vital Signs Temp Pulse Resp BP Pulse Ox 98.4 F 94 H 20 113/74 100 06/09/20 10:00 06/09/20 10:00 06/09/20 10:00 06/09/20 10:00 06/09/20 10:00 HEENT - Atraumatic, Normocephalic. Heart - S1, S2, RRR Lungs - clear to auscultation Abdomen - Soft, non-tender. Bowel Sounds normal. Extremities - no edema, no calf tenderness. Neuro - AAO x 3. Tone/Power normal all 4 extremities. Laboratory Results - last 24 hr 06/08/20 06/08/20 06/09/20 10:48 16:37 08:10 WBC 12.5 H RBC 4.74 Hgb 13.0 Hct 39.6 MCV 83.6 MCH 27.4 MCHC 32.7 RDW 14.0 Plt Count 225 MPV 9.1 Absolute Neuts (auto) 9.5 H Neutrophils % 75.8 Lymphocytes % 15.3 D Monocytes % 8.1 Eosinophils % 0.1 D Basophils % 0.7 Nucleated RBC % 0 Sodium Potassium Chloride Carbon Dioxide Anion Gap BUN Creatinine Est GFR (CKD-EPI)AfAm Est GFR (CKD-EPI)NonAf POC Glucometer 249 Random Glucose Hemoglobin A1c % Calcium Phosphorus Magnesium Opiates Screen Negative Methadone Screen Negative Barbiturate Screen Negative Phencyclidine Screen Negative Ur Amphetamines Screen Negative MDMA (Ecstasy) Screen Negative Benzodiazepines Screen Negative Cocaine Screen Negative U Marijuana (THC) Screen Positive A* 06/09/20 06/09/20 06/09/20 08:10 08:10 08:34 WBC RBC Hgb Hct MCV MCH MCHC RDW Plt Count MPV Absolute Neuts (auto) Neutrophils % Lymphocytes % Monocytes % Eosinophils % Basophils % Nucleated RBC % Sodium 139 Potassium 3.5 Chloride 108 H Carbon Dioxide 22 Anion Gap 9 BUN 5.4 L Creatinine 0.5 L Est GFR (CKD-EPI)AfAm 144.31 Est GFR (CKD-EPI)NonAf 124.51 POC Glucometer 139 Random Glucose 120 H Hemoglobin A1c % 7.3 H Calcium 8.9 Phosphorus 2.8 Magnesium 2.2 Opiates Screen Methadone Screen Barbiturate Screen Phencyclidine Screen Ur Amphetamines Screen MDMA (Ecstasy) Screen Benzodiazepines Screen Cocaine Screen U Marijuana (THC) Screen 06/09/20 11:25 WBC RBC Hgb Hct MCV MCH MCHC RDW Plt Count MPV Absolute Neuts (auto) Neutrophils % Lymphocytes % Monocytes % Eosinophils % Basophils % Nucleated RBC % Sodium Potassium Chloride Carbon Dioxide Anion Gap BUN Creatinine Est GFR (CKD-EPI)AfAm Est GFR (CKD-EPI)NonAf POC Glucometer 160 Random Glucose Hemoglobin A1c % Calcium Phosphorus Magnesium Opiates Screen Methadone Screen Barbiturate Screen Phencyclidine Screen Ur Amphetamines Screen MDMA (Ecstasy) Screen Benzodiazepines Screen Cocaine Screen U Marijuana (THC) Screen Current Medications Generic Name Dose Route Start Last Admin Trade Name Freq PRN Reason Stop Dose Admin Acetaminophen 1,000 mg 06/08/20 16:29 06/08/20 20:36 Ofirmev Injection - IVPB 06/09/20 16:29 1,000 mg Q6H PRN Administration PAIN LEVEL 4 - 6 Famotidine/Sodium Chloride 20 mg in 50 mls @ 100 mls/hr 06/08/20 22:00 06/09/20 09:41 Pepcid 20 Mg Premixed Ivpb - IVPB 100 mls/hr BID ANA Administration Sodium Chloride 1,000 mls @ 100 mls/hr 06/08/20 16:30 06/08/20 18:23 Normal Saline - IV 100 mls/hr ASDIR ANA Administration Insulin Aspart 1 vial 06/08/20 16:30 06/09/20 11:27 Novolog Vial Sliding Scale - SQ Not Given TIDAC [facility] Protocol Insulin Detemir 12 units 06/08/20 22:00 06/08/20 21:37 Levemir Vial SQ 12 unit HS ANA Administration Nicotine 14 mg 06/08/20 16:45 06/09/20 09:41 Nicoderm Patch - TD 14 mg DAILY ANA Administration Ondansetron HCl 4 mg 06/08/20 16:27 Zofran Injection IVPUSH Q6H PRN NAUSEA Home Medications Medication Instructions Recorded Insulin (LOG) Aspart [NovoLOG -] 4 units SQ TID 06/08/20 Insulin (Levemir) [Levemir Vial] 16 unit SQ HS 06/08/20 ASSESSMENT AND PLAN: 34 year old female with history of DM 2, active smoker, MJ use, admitted with nausea/vomiting/abdominal discomfort found to have hyperglycemia, positive B- hydroxybutyrate. CT A/P - bilateral adnexal cysts. 1. Cyclic Vomiting Syndrome Likely secondary to MJ use - patient counselled. Reports having had a gastric emptying study at [place] - will refer back to PCP for result and GI referral if needed. Nausea improved with zofran as per patient - will give PRN. 2. Hyperglycemia, positive Ketones - pH normal, no AG and no acidosis No signs of underlying infection Bicarb levels now normal after adequate hydration Resumed on home insulin regimen Tolerating oral intake currently. 3. DM 2 - Uncontrolled, A1C 7.3. Admits to not taking insulin prior to hospital/ED presentation. Continue Levemir/Novolog as per home meds. PCP follow up for DM 2 maintenance/medication titration. 4. Active Smoker/MJ user - counselled. Medically stable for discharge with PCP follow up.
--- NOTE | 2020-06-09 14:10 | DS ---
Physical Exam: SUBJECTIVE: Patient seen and examined at bedside with no acute overnight events. patient reports abdominal pain and nausea resolving with zofran and tylenol. Patient endorses much improvement in symptoms. OBJECTIVE: Vital Signs Period Temp Pulse Resp BP Sys/Boss Pulse Ox Last 24 Hr 98.4 F-98.7 F 82-94 18-20 113-148/74-90 96-100 PHYSICAL EXAM GENERAL: The patient is awake, alert, and fully oriented, in no acute distress. LUNGS: Breath sounds equal, clear to auscultation bilaterally, no wheezes, no crackles, no accessory muscle use. HEART: Regular rate and rhythm, S1, S2 without murmur, rub or gallop. ABDOMEN: Soft, nontender, nondistended, normoactive bowel sounds, no guarding, no rebound, no hepatosplenomegaly, no masses. EXTREMITIES: 2+ pulses, warm, well-perfused, no edema. LABS Laboratory Results - last 24 hr 06/08/20 06/08/20 06/09/20 10:48 16:37 08:10 WBC 12.5 H RBC 4.74 Hgb 13.0 Hct 39.6 MCV 83.6 MCH 27.4 MCHC 32.7 RDW 14.0 Plt Count 225 MPV 9.1 Absolute Neuts (auto) 9.5 H Neutrophils % 75.8 Lymphocytes % 15.3 D Monocytes % 8.1 Eosinophils % 0.1 D Basophils % 0.7 Nucleated RBC % 0 Sodium Potassium Chloride Carbon Dioxide Anion Gap BUN Creatinine Est GFR (CKD-EPI)AfAm Est GFR (CKD-EPI)NonAf POC Glucometer 249 Random Glucose Hemoglobin A1c % Calcium Phosphorus Magnesium Opiates Screen Negative Methadone Screen Negative Barbiturate Screen Negative Phencyclidine Screen Negative Ur Amphetamines Screen Negative MDMA (Ecstasy) Screen Negative Benzodiazepines Screen Negative Cocaine Screen Negative U Marijuana (THC) Screen Positive A* 06/09/20 06/09/20 06/09/20 08:10 08:10 08:34 WBC RBC Hgb Hct MCV MCH MCHC RDW Plt Count MPV Absolute Neuts (auto) Neutrophils % Lymphocytes % Monocytes % Eosinophils % Basophils % Nucleated RBC % Sodium 139 Potassium 3.5 Chloride 108 H Carbon Dioxide 22 Anion Gap 9 BUN 5.4 L Creatinine 0.5 L Est GFR (CKD-EPI)AfAm 144.31 Est GFR (CKD-EPI)NonAf 124.51 POC Glucometer 139 Random Glucose 120 H Hemoglobin A1c % 7.3 H Calcium 8.9 Phosphorus 2.8 Magnesium 2.2 Opiates Screen Methadone Screen Barbiturate Screen Phencyclidine Screen Ur Amphetamines Screen MDMA (Ecstasy) Screen Benzodiazepines Screen Cocaine Screen U Marijuana (THC) Screen 06/09/20 11:25 WBC RBC Hgb Hct MCV MCH MCHC RDW Plt Count MPV Absolute Neuts (auto) Neutrophils % Lymphocytes % Monocytes % Eosinophils % Basophils % Nucleated RBC % Sodium Potassium Chloride Carbon Dioxide Anion Gap BUN Creatinine Est GFR (CKD-EPI)AfAm Est GFR (CKD-EPI)NonAf POC Glucometer 160 Random Glucose Hemoglobin A1c % Calcium Phosphorus Magnesium Opiates Screen Methadone Screen Barbiturate Screen Phencyclidine Screen Ur Amphetamines Screen MDMA (Ecstasy) Screen Benzodiazepines Screen Cocaine Screen U Marijuana (THC) Screen HOSPITAL COURSE: Date of Admission:06/08/20 Ms. Orozco is a 34F w a h/o diabetes melitus managed with insulin and active marijuana use presents to the emergency department for a c/o multiple episodes of NBNB vomiting. The patient was managed conservatively in the ED with IVF, tylenol, and zofran. Patient was found to have elevated hydroxybuterate ketones and blood glucose levels with decreased bicarb on labs. Abdominal Ultrasound reveals incidental left and right adnexal cysts with recommendations to follow up with MECHANICAL MAINTENANCE FOREMAN outpatient. Patient is hemodynamically stable and afebrile with complete resolution of her symptoms. Patient was also counselled on decreased marijuana use, as that may have been the cause of the persistent vomiting and nausea. She was recommended to follow up outpatient with her PCP (Dr. Jin Avery) for a gastric motility study for further work up of the persistent nausea and vomiting. Date of Discharge: 06/09/20 Minutes to complete discharge: 35 Discharge Summary Problems reviewed: Yes Reason For Visit: NAUSEA AND VOMITING Current Active Problems Marijuana abuse (Chronic) Type 2 diabetes mellitus (Chronic) Condition: Good - Instructions Diet, Activity, Other Instructions: YOUR VISIT: You were admitted to the hospital for worsening abdominal pain, nausea, and mul tiple episodes of vomiting. While you were here we evaluated you with blood work, lab work, and imaging including an chest abdomen and pelvic CT scan. It is believed that marijuana use may be the cause for the nausea and vomiting otherwise known as cannabinoid hyperemesis syndrome. You were treated with fluids, pain medication, and anti-nausea medication. your symptoms have resolved and you are now tolerating food without further symptoms. [facility] for results of your gastric emptying study and referral to Instrument Operator if required. Lab work reveals an elevated A1C of 7.3 and we would like you to follow up with your primary care physician for diabetes management. CT scan of your pelvis revealed left and right ovarian cysts. Please follow up with your MECHANICAL MAINTENANCE FOREMAN to go over your imaging findings. MEDICATIONS: Please continue taking Novolog 4 units 3 times a day. Please continue taking Levemir 16 units before bed. Please START taking ZOFRAN 4mg every 6 hours as needed for nausea. Please continue taking all home medications as prescribed. REFERRAL: Please follow up with your primary care doctor for Gastric emptying study and possible GI referral and to evaluate your A1C within 1 week after discharge.(Dr. Jin Avery) Please follow up with your PCP for results of your Please follow up with MECHANICAL MAINTENANCE FOREMAN to review your CT scan findings within 1 week after discharge. (Dr. José Antonio Beach) ADDITIONAL INFORMATION: You are being discharged home Please return to the Emergency Department immediately if you begin to experience, nausea, vomiting, fevers or chills, increased abdominal pain, shortness of breath, chest pain, new or concerning symptoms. Referrals: Jin Avery [Other] - 1 Week (follow up for DM 2 management and results of gastric emptying study) José Antonio Rose MD [Staff Physician] - 2 Weeks (bilateral adnexal cysts) Disposition: HOME - Home Medications Comprehensive Discharge Medication List: Ambulatory Orders Insulin (LOG) Aspart [NovoLOG -] 4 units SQ TID 06/08/20 Insulin (Levemir) [Levemir Vial] 16 unit SQ HS 06/08/20 Lisinopril 5 mg PO DAILY 06/09/20 Ondansetron HCl [Zofran] 4 mg PO Q6H #6 tablet 06/09/20 Pravastatin Sodium 10 mg PO DAILY 06/09/20 This patient is new to me today: Yes Date on this admission: 06/09/20 Emergency Visit: Yes ED Registration Date: 06/08/20 Care time: The patient presented to the Emergency Department on the above date and was hospitalized for further evaluation of their emergent condition. Critical Care patient: No - Discharge Referral Referred to [facility] No ATTENDING PHYSICIAN STATEMENT I saw and evaluated the patient. I reviewed the resident's note and discussed the case with the resident. I agree with the resident's findings and plan as documented. SUBJECTIVE: OBJECTIVE: ASSESSMENT AND PLAN:
[2020-06-09 15:08] VITALS: BMI 20.9
== END 2020-06-09 15:31 | disposition home or self-care (01) | DRG 249 ==
LOC: JER 08:21 → JERBED 15:33
PROVIDERS: ADMIT Internal Medicine
DX: R11.15 Cyclical vomiting syndrome unrelated to migraine (principal); E11.65 Type 2 diabetes mellitus with hyperglycemia; F12.188 Cannabis abuse with other cannabis-induced disorder; F17.210 Nicotine dependence, cigarettes, uncomplicated; Z79.4 Long term (current) use of insulin
CPT/HCPCS: 36415; 74177-TC; 76700-TC; 80048; 80053; 80307; 81003; 82010; 82803; 82962; 83036; 83690; 83735; 84100; 84702; 85025; 93005; 93010; 99285-25; J0131; Q9967; U0003

== ENCOUNTER 2021-09-13 21:16 | Observation (INO) | payer OTHER ==
[2021-09-13] MEDS ORDERED: ACETAMINOPHEN 1000 MG/100 ML VIAL IVPB ONE (22:03)
[2021-09-13] MEDS ORDERED: LACTATED RINGERS SOLUTION 1000 ML INFUS.BAG IV ONE (22:08)
[2021-09-13] MEDS ORDERED: ONDANSETRON 4 MG/2 ML VIAL IVPUSH ONE (22:13)
[2021-09-13] MEDS ORDERED: ACETAMINOPHEN INJECTION 100 ML IVPB ONE (22:19)
[2021-09-13] MEDS ORDERED: ONDANSETRON 4 MG/2 ML VIAL ONE (22:19)
[2021-09-13] MEDS ORDERED: LORazepam 2 MG/ML SDV VIAL ONE (22:25)
[2021-09-13 22:41] LABS: VENOUS BASE EXCESS -2.1 mmol/L (-2-2); VENOUS O2 SATURATION 51.3 % (70-80); VENOUS PCO2 41.2 mmHg (38-52); VENOUS PH 7.367 (7.310-7.410)
[2021-09-13 22:44] LABS: BASO % 0.9 % (0-2.0); HEMATOCRIT 42.2 % (32.4-45.2); HEMOGLOBIN 13.8 GM/dL (10.7-15.3); LYMPH % 7.4 % (8-40); MCH 26.8 pg (25.7-33.7); MCHC 32.8 g/dl (32.0-36.0); MEAN CELL VOLUME 81.9 fl (80-96); MEAN PLT VOLUME 9.6 fl (7.5-11.1); MONO % 3.6 % (3.8-10.2); NEUT % 88.1 % (42.8-82.8); PLATELET COUNT 240 10^3/uL (134-434); RBC 5.15 M/mm3 (3.60-5.2); RDW 13.7 % (11.6-15.6); WHITE BLOOD COUNT 15.4 K/mm3 (4.0-10.0)
[2021-09-13 22:55] LABS: METHADONE, UR NEGATIVE (NEGATIVE)
[2021-09-13 22:56] LABS: COCAINE, UR NEGATIVE (NEGATIVE); PHENCYCLIDINE,URINE NEGATIVE (NEGATIVE)
[2021-09-13 22:58] LABS: OPIATES, URI NEGATIVE (NEGATIVE); URINE AMPHETAMINES NEGATIVE (NEGATIVE); URINE BARBITURATES NEGATIVE (NEGATIVE); URINE BENZODIAZEPINES POSITIVE (NEGATIVE)
[2021-09-13 23:04] LABS: CALCIUM 9.9 mg/dL (8.5-10.1)
[2021-09-13 23:05] LABS: ALBUMIN 4.8 g/dl (3.4-5.0); BLOOD UREA NITROGEN 7.5 mg/dL (7-18); MAGNESIUM 1.9 mg/dL (1.8-2.4)
[2021-09-13 23:08] LABS: CREATININE 0.8 mg/dL (0.55-1.3)
[2021-09-13 23:09] LABS: BILIRUBIN,TOTAL 0.5 mg/dL (0.2-1)
[2021-09-13 23:10] LABS: TOT PROT 8.9 g/dl (6.4-8.2)
[2021-09-13 23:19] LABS: LACTIC ACID 2.6 mmol/L (0.4-2.0)
[2021-09-13] MEDS ORDERED: HALOPERIDOL DECANOATE 500 MG/5ML MDV IM ONE (23:24)
[2021-09-13] MEDS ORDERED: HALOPERIDOL LACTATE 5 MG/ML ONE (23:28)
[2021-09-14] MEDS ORDERED: METHOCARBAMOL 500 MG TABLET PO ONE (00:53)
[2021-09-14] MEDS ORDERED: METHOCARBAMOL 500 MG TABLET ONE (01:13)
[2021-09-14] MEDS ORDERED: INSULIN (NOVOLOG) ASPART 100 UNITS/ML 10ML VIAL SQ ONE (01:59)
[2021-09-14] MEDS ORDERED: POTASSIUM CHLORIDE TABS 20 MEQ TABLET.ER (FP) PO ONE ×2 (03:12→04:28)
[2021-09-14] MEDS ORDERED: SODIUM CHLORIDE 1,000 ML IV SCH ×2 (03:15→10:39)
[2021-09-14] MEDS ORDERED: LISINOPRIL 5 MG TABLET PO ONE (04:11)
[2021-09-14] MEDS ORDERED: LISINOPRIL 5 MG TABLET ONE (04:29)
[2021-09-14] MEDS: PROCHLORPERAZINE INJECTION 10 MG/2 ML VIAL IVPB PRN ×2 (06:08→11:52)
[2021-09-14] MEDS ORDERED: MELATONIN 5 MG TABLETS PO ONE (06:15)
[2021-09-14] MEDS: INSULIN (NOVOLOG) ASPART 100 UNITS/ML 10ML VIAL SQ SCH ×2 (06:37→11:29)
[2021-09-14 07:07] VITALS: BMI 17.9
[2021-09-14] MEDS ORDERED: PNEUMOC 13-VAL CONJ-DIP CRM/PF 0.5 ML DISP.SYRIN IM ONE (07:07)
[2021-09-14 08:49] LABS: BASO % 0.3 % (0-2.0); HEMATOCRIT 39.4 % (32.4-45.2); MCH 27.2 pg (25.7-33.7); MEAN CELL VOLUME 82.6 fl (80-96); MEAN PLT VOLUME 9.3 fl (7.5-11.1); MONO % 5.5 % (3.8-10.2); NEUT % 86.2 % (42.8-82.8); PLATELET COUNT 253 10^3/uL (134-434); RBC 4.77 M/mm3 (3.60-5.2); RDW 14.3 % (11.6-15.6)
[2021-09-14 09:23] LABS: ALBUMIN 3.9 g/dl (3.4-5.0); MAGNESIUM 2.1 mg/dL (1.8-2.4)
[2021-09-14 09:25] LABS: CREATININE 0.6 mg/dL (0.55-1.3)
[2021-09-14 09:26] LABS: PHOSPHOROUS 2.5 mg/dL (2.5-4.9)
[2021-09-14 09:27] LABS: TOT PROT 7.8 g/dl (6.4-8.2)
[2021-09-14 09:29] LABS: BILIRUBIN,TOTAL 1.3 mg/dL (0.2-1)
[2021-09-14] MEDS ORDERED: ENOXAPARIN NA (PORCINE) 40 MG/0.4 ML DISP.SYRIN SQ SCH (10:00)
[2021-09-14] MEDS ORDERED: PNEUMOCOCCAL 23 VACCINE 0.5 ML VIAL IM ONE (10:00)
[2021-09-14] MEDS ORDERED: INSULIN (NOVOLOG) ASPART 100 UNITS/ML 10ML VIAL ONE (11:27)
[2021-09-14] MEDS ORDERED: PT OWN MED DRAWER 7, Y5N ONE (11:51)
[2021-09-14 12:59] LABS: EPI CELLS 34 /uL (0-25.1); HYALINE CASTS 5 /uL (0-3.1); PH,URINE 5.5 (5.0-8.0); URINE APPEARANCE CLOUDY; URINE BACTERIA 663 /uL (0-1359); URINE BILIRUBIN NEGATIVE (NEGATIVE); URINE COLOR YELLOW; URINE GLUCOSE (UA) 3+ (NEGATIVE); URINE KETONE 4+ (NEGATIVE); URINE LEUK ESTERASE 2+ (NEGATIVE); URINE NITRITE NEGATIVE (NEGATIVE); URINE PROTEIN 1+ (NEGATIVE); URINE RBC 12 /uL (0-23.9); URINE UROBILINOGEN 0.2 mg/dL (0.2-1.0); URINE WBC 323 /uL (0-25.8)
[2021-09-14] MEDS ORDERED: LISINOPRIL 10 MG TABLET PO SCH (15:45)
[2021-09-14 17:02] VITALS: BP 150/85; PULSE 98; TEMP 98.1
== END 2021-09-14 16:32 | disposition left against medical advice (07) ==
LOC: JER 21:16 → INTOOBSV 09-14 00:17 → UNDOADMOB 09-14 00:17 → JERBED 09-14 00:17 → J8W 09-14 05:51 → JERBED 09-14 11:08 → J8W 09-14 11:08
PROVIDERS: ADMIT Internal Medicine; ATTEND Internal Medicine
PROC: 3E0337Z Introduction of Electrolytic and Water Balance Substance into Peripheral Vein, Percutaneous Approach (ICD-10-PCS; principal; 2021-09-14)
PROC: 3E013VG Introduction of Insulin into Subcutaneous Tissue, Percutaneous Approach (ICD-10-PCS; 2021-09-14)
PROC: 3E023NZ Introduction of Analgesics, Hypnotics, Sedatives into Muscle, Percutaneous Approach (ICD-10-PCS; 2021-09-14)
PROC: 3E033NZ Introduction of Analgesics, Hypnotics, Sedatives into Peripheral Vein, Percutaneous Approach (ICD-10-PCS; 2021-09-14)
PROC: 3E023GC Introduction of Other Therapeutic Substance into Muscle, Percutaneous Approach (ICD-10-PCS; 2021-09-14)
PROC: 3E033GC Introduction of Other Therapeutic Substance into Peripheral Vein, Percutaneous Approach (ICD-10-PCS; 2021-09-14)
DX: R56.9 Unspecified convulsions (principal); I10 Essential (primary) hypertension; R11.10 Vomiting, unspecified; E78.5 Hyperlipidemia, unspecified; D72.829 Elevated white blood cell count, unspecified; E11.69 Type 2 diabetes mellitus with other specified complication; Z87.891 Personal history of nicotine dependence
CPT/HCPCS: 36415; 70450-TC; 71045-TC-FY; 80053; 80307; 81003; 82010; 82550; 82803; 82962; 83036; 83605; 83690; 83735; 84100; 84443; 84703; 85025; 87086; 93005; 93010; 96361; 96372; 96374; 96375; 99285-25; C9803; G0378; J0131; U0003; U0005